=== PATIENT | female | born 1990 | race Asian ===

== ENCOUNTER 2022-09-17 23:17 | Emergency (ER) | payer OTHER ==
[~2022-09-17] VITALS: Ht 165.1 cm; Wt 67.3 kg
[2022-09-17 23:24] VITALS: BP 128/93
[2022-09-18] MEDS ORDERED: TOPUD MT (04:13)
[2022-09-18] MEDS ORDERED: ONDA4TAB50 MT (04:13)
== END 2022-09-18 05:26 | disposition left against medical advice (07) ==
LOC: ER 23:17
DX: S09.8XXA Other specified injuries of head, initial encounter (principal); F07.81 Postconcussional syndrome; W18.49XA Other slipping, tripping and stumbling without falling, initial encounter; Y93.89 Activity, other specified; Y92.813 Airplane as the place of occurrence of the external cause; Y99.0 Civilian activity done for income or pay
CPT/HCPCS: 99284